=== PATIENT | male | born 1985 | race Caucasian/White ===

== ENCOUNTER → 2017-06-16 | Outpatient (CLI) | payer OTHER ==
[2017-06-16 13:11] LABS: HEMATOCRIT 45.1 % (42.0-52.0); HEMOGLOBIN 16.1 g/dl (14.0-18.0); MEAN CELL VOLUME 89.1 fl (80.0-94.0); MEAN CORPUSCULAR HGB 31.8 pg (27.0-31.0); MEAN CORPUSCULAR HGB CONC 35.7 g/dl (33.0-37.0); MEAN PLATELET VOLUME 10.2 fl (9.6-12.3); RED BLOOD COUNT 5.06 10*6/uL (4.50-5.90); RED CELL DISTRI WIDTH 12.6 % (0-14.5); WHITE BLOOD COUNT 10.5 10*3/uL (4.8-10.8)
[2017-06-16 13:37] LABS: ALBUMIN 3.8 gm/dl (3.1-4.5); ALKALINE PHOSPHATASE 110 U/L (45-117); BUN 13 mg/dl (7-24); CHLORIDE 102 mmol/L (98-107); CHOLESTEROL 133 mg/dL (<200); CREATININE 1.08 mg/dL (0.70-1.30); HDL CHOLESTEROL 35 mg/dl (40-60); LDL CHOLESTEROL 69 mg/dL (9-159); POTASSIUM 4.6 mmol/L (3.5-5.1); SGOT/AST 12 IU/L (3-35); SGPT/ALT 26 U/L (12-78); SODIUM 138 mmol/L (136-145); TOTAL PROTEIN 8.1 gm/dL (6.4-8.2); TRIGLYCERIDES 144 mg/dl (<150); VLDL CHOLESTEROL 29 mg/dL (6-40)
== END | disposition home or self-care (01) ==
LOC: LAB 12:48
PROVIDERS: Family Medicine
DX: E78.00 Pure hypercholesterolemia, unspecified (principal); E55.9 Vitamin D deficiency, unspecified; R53.83 Other fatigue

== ENCOUNTER → 2019-01-05 | Outpatient (CLI) | payer BC | END | disposition home or self-care (01) | LOC: RAD 11:35 | DX: R05 Cough (principal) ==

== ENCOUNTER → 2019-01-09 | Outpatient (CLI) | payer BC ==
--- NOTE | ~2019-01-09 | PF ---
[place], [place] PULMONARY FUNCTION TEST [id number] UNIT #: [id number] ROOM: DOCTOR: TACO HILARIO MD,MARIA ISABEL BIRTHDATE: [birth year] DOS: 01/09/2019 The test was ordered by Rodolfo Figueroa D.O. HISTORY: The patient is a 33-year-old male, height of 65 inches, weight of 205 pounds, and BMI of 34.1. Test was done for assessment of nonproductive cough, shortness breath with exertion, and frequent wheezing. SPIROMETRY: The FVC of 5.07 liters, 111% predicted value. The FEV1 of 4.06 liters, 107% predicted value. The ratio of FEV1/FVC 80%. Post-bronchodilator, no significant changes noted in FEV1/FVC. Flow volume loop was normal. LUNG VOLUME: Thoracic gas volume of 68%, residual volume of 107%, and total lung capacity of 104%. The patient's airway resistance and passive conductance normal. The patient's lung diffusion of 106%, normal. FINAL IMPRESSION: Normal pulmonary function test. MARIA ISABEL ESPAÑA MD CM:PFREPORT:PULMONARY FUNCTION TEST [id number] MARIA ISABEL HILARIO MD
== END | disposition home or self-care (01) ==
LOC: CP 10:28
DX: R05 Cough (principal)

== ENCOUNTER → 2019-08-06 | Outpatient (CLI) | payer BC ==
[2019-08-06 07:52] LABS: HEMATOCRIT 48.8 % (42.0-52.0); HEMOGLOBIN 16.7 g/dl (14.0-18.0); MEAN CELL VOLUME 91.4 fl (80.0-94.0); MEAN CORPUSCULAR HGB 31.3 pg (27.0-31.0); MEAN CORPUSCULAR HGB CONC 34.2 g/dl (33.0-37.0); MEAN PLATELET VOLUME 10.7 fl (9.6-12.3); RED BLOOD COUNT 5.34 10*6/uL (4.50-5.90); RED CELL DISTRI WIDTH 12.5 % (0-14.5)
[2019-08-06 08:22] LABS: ALBUMIN 3.7 gm/dl (3.1-4.5); ALKALINE PHOSPHATASE 89 U/L (45-117); BUN 11 mg/dl (7-24); CHLORIDE 102 mmol/L (98-107); CHOLESTEROL 154 mg/dL (<200); CREATININE 1.04 mg/dL (0.70-1.30); HDL CHOLESTEROL 38 mg/dl (40-60); LDL CHOLESTEROL 91 mg/dL (9-159); POTASSIUM 3.7 mmol/L (3.5-5.1); SGOT/AST 17 IU/L (3-35); SGPT/ALT 33 U/L (12-78); SODIUM 137 mmol/L (136-145); TRIGLYCERIDES 123 mg/dl (<150); VLDL CHOLESTEROL 25 mg/dL (6-40)
== END | disposition home or self-care (01) ==
LOC: LAB 06:44
PROVIDERS: Family Medicine
DX: K21.9 Gastro-esophageal reflux disease without esophagitis (principal); R53.83 Other fatigue; R06.02 Shortness of breath

== ENCOUNTER → 2019-08-14 | Outpatient (CLI) | payer BC | END | disposition home or self-care (01) | LOC: CT 10:43 | DX: T54 Toxic effect of corrosive substances (principal); R05 Cough; R06.09 Other forms of dyspnea; R07.9 Chest pain, unspecified; R06.02 Shortness of breath ==

== ENCOUNTER 2021-04-20 12:32 | Emergency (ER) | payer OTHER ==
[~2021-04-20] VITALS: Ht 167.6 cm; Wt 93.0 kg
[2021-04-20 13:54] LABS: BASO # 0.1 10*3/uL (0.0-0.1); BASO % 0.7 % (0.0-1.0); EOS # 0.4 10*3/uL (0.0-0.4); EOS % 4.9 % (1.0-4.0); HEMATOCRIT 46.4 % (42.0-52.0); LYMPH # 2.2 10*3/uL (1.3-4.4); LYMPH % 23.8 % (27.0-41.0); MEAN CELL VOLUME 90.6 fl (80.0-94.0); MEAN CORPUSCULAR HGB 32.2 pg (27.0-31.0); MEAN CORPUSCULAR HGB CONC 35.6 g/dl (33.0-37.0); MEAN PLATELET VOLUME 10.2 fl (9.6-12.3); MONO # 0.8 10*3/uL (0.1-1.0); MONO % 9.3 % (3.0-9.0); NEUT # 5.5 10*3/uL (2.3-7.9); NEUT % 60.9 % (47.0-73.0); PLATELET COUNT AUTOMATED 308 10*3/uL (130-400); RED BLOOD COUNT 5.12 10*6/uL (4.50-5.90); RED CELL DISTRI WIDTH 12.2 % (0-14.5)
[2021-04-20 14:10] LABS: ALBUMIN 3.8 gm/dl (3.1-4.5); ALKALINE PHOSPHATASE 101 U/L (45-117); BUN 12 mg/dl (7-24); CHLORIDE 107 mmol/L (98-107); CREATININE 1.02 mg/dL (0.70-1.30); POTASSIUM 4.1 mmol/L (3.5-5.1); SGOT/AST 18 IU/L (3-35); SGPT/ALT 42 U/L (12-78); SODIUM 136 mmol/L (136-145); TOTAL PROTEIN 7.7 gm/dL (6.4-8.2)
[2021-04-20 14:14] LABS: BILIRUBIN Negative (Negative); BLOOD Negative (Negative); CLARITY Clear (Clear); COLOR Yellow (Yellow); GLUCOSE Negative (Negative); KETONE Trace (Negative); LEUKO ESTERASE Negative (Negative); NITRITE Negative (Negative); SPECIFIC GRAVITY >= 1.030 (1.001-1.030)
[2021-04-20 14:25] LABS: BACTERIA 1+; EPITHELIAL CELLS 0-2; MUCOUS 2+; RBC 0-2 rbc/hpf (0-2); WBC 0-2 wbc/hpf (0-5)
[2021-04-20] MEDS ORDERED: ZOFRAN4 MG PO (15:24)
== END 2021-04-20 15:29 | disposition home or self-care (01) ==
LOC: ED 12:32
PROVIDERS: Student in an Organized Health Care Education/Training Program
DX: K52.9 Noninfective gastroenteritis and colitis, unspecified (principal); R31.9 Hematuria, unspecified

== ENCOUNTER → 2021-09-30 | Outpatient (CLI) | payer OTHER ==
[~2021-09-30] MED LIST: ZOFRAN4 MG PO
== END ==
LOC: WOUNDCARE 02:08
PROVIDERS: ATTEND Surgery
DX: L02.31 Cutaneous abscess of buttock (principal); K61.1 Rectal abscess; Z98.890 Other specified postprocedural states; Z79.899 Other long term (current) drug therapy

== ENCOUNTER → 2022-03-28 | Outpatient (CLI) | payer OTHER ==
[2022-04-02 22:05] LABS: ALTERNARIA ALTERNATA, IGE <0.10 kU/L (Class 0); AMERICAN ELM, IGE <0.10 kU/L (Class 0); ASPERGILLUS FUMIGATU, IGE <0.10 kU/L (Class 0); BERMUDA GRASS, IGE <0.10 kU/L (Class 0); BIRCH, COMMON SILVER IGE <0.10 kU/L (Class 0); CLADOSPORIUM HERBARU, IGE <0.10 kU/L (Class 0); D FARINAE MITE 0.71 kU/L (Class II); D PTERONYSSINUS 0.62 kU/L (Class II); DOG DANDER, IGE <0.10 kU/L (Class 0); MAPLE LEAF SYCAMORE, IGE <0.10 kU/L (Class 0); MAPLE/BOX ELDER, IGE 0.16 kU/L (Class 0/I); MOUSE URINE IGE <0.10 kU/L (Class 0); PENICILLIUM CHRYSOGENUM, IGE <0.10 kU/L (Class 0); ROUGH PIGWEED, IGE <0.10 kU/L (Class 0); SHEEP SORREL (DOCK), IGE <0.10 kU/L (Class 0); SHORT RAGWEED, IGE 0.23 kU/L (Class 0/I); TIMOTHY, IGE <0.10 kU/L (Class 0); WHITE ASH, IGE 0.49 kU/L (Class I); WHITE MULBERRY, IGE <0.10 kU/L (Class 0); WHITE OAK, IGE 0.17 kU/L (Class 0/I)
== END | disposition home or self-care (01) ==
LOC: LAB 07:55
PROVIDERS: ATTEND Physical Therapist
DX: R05.9 Cough, unspecified (principal)

== ENCOUNTER → 2022-07-23 | Day surgery (SDC) | payer BC ==
[~2022-07-23] VITALS: Ht 165.1 cm; Wt 97.5 kg
[~2022-07-23] MED LIST changes: +CARAFATE1 G1 PO; +PROTONIX40 MG PO
[2022-07-23 06:30] VITALS: BP 151/94
[2022-07-23 07:54] VITALS: BP 121/75
[2022-07-23 08:09] VITALS: BP 119/87
[2022-07-23 08:24] VITALS: BP 121/67
== END | disposition home or self-care (01) ==
LOC: SDC 07-20 08:00
PROVIDERS: ATTEND Surgery
DX: R10.9 Unspecified abdominal pain (principal); K29.50 Unspecified chronic gastritis without bleeding; K25.9 Gastric ulcer, unspecified as acute or chronic, without hemorrhage or perforation; K61.0 Anal abscess; Z87.891 Personal history of nicotine dependence; Z79.899 Other long term (current) drug therapy

== ENCOUNTER → 2024-06-13 | Outpatient (CLI) | payer BC ==
[2024-06-13 10:44] LABS: ALKALINE PHOSPHATASE 87 U/L (46-116); BUN 12 mg/dl (9-23); CHLORIDE 105 mmol/L (98-107); CHOLESTEROL 149 mg/dL (<200); LDL CHOLESTEROL 98 mg/dL (9-159); POTASSIUM 4.3 mmol/L (3.4-5.1); SGPT/ALT 18 U/L (5-49); TOTAL PROTEIN 7.4 gm/dL (6.0-8.0); TRIGLYCERIDES 76 mg/dl (<150)
== END | disposition home or self-care (01) ==
LOC: LAB 09:53
PROVIDERS: ATTEND Family Medicine
DX: Z13.220 Encounter for screening for lipoid disorders (principal); Z87.898 Personal history of other specified conditions; Z68.33 Body mass index [BMI] 33.0-33.9, adult

== ENCOUNTER 2024-08-04 21:25 | Emergency (ER) | payer BC ==
[~2024-08-04] VITALS: Ht 167.6 cm; Wt 83.9 kg
[2024-08-04] MEDS ORDERED: CLINDAMYCIN HCL 300 MG CAPSULE PO ONE (21:50)
[2024-08-04] MEDS ORDERED: Acetaminophen/Hydrocodone HP 10/325 PO ONE (21:50)
[2024-08-04] MEDS ORDERED: Amoxicillin/Clavulanate Pota 875 MG TAB PO ONE (21:50)
[2024-08-04] MEDS ORDERED: AMOX-CLAV 875-1 EACH PO (21:50)
[2024-08-04] MEDS ORDERED: HYDROCODONE-AC1 EACH PO (21:50)
[2024-08-04] MEDS ORDERED: CLEOCIN HCL300 MG PO (21:50)
== END 2024-08-04 22:03 | disposition home or self-care (01) ==
LOC: ED 21:25
DX: K04.7 Periapical abscess without sinus (principal); R22.0 Localized swelling, mass and lump, head; Z98.890 Other specified postprocedural states; Z87.442 Personal history of urinary calculi; F17.290 Nicotine dependence, other tobacco product, uncomplicated